=== PATIENT | female | born 1990 | race African-American/Black ===

== ENCOUNTER 2018-01-31 10:23 | Emergency (ER) | payer OTHER ==
[2018-01-31] MEDS ORDERED: MAG HYDROX/AL HYDROX/SIMETH 30 ML UDC PO STA (11:42)
[2018-01-31] MEDS ORDERED: LIDOCAINE VISCOUS 2% 15 ML UDC MM STA (11:42)
[2018-01-31] MEDS ORDERED: PHENobarb/HYOSCY/ATROPINE/SCOP 5 ML UDC PO STA (11:43)
--- NOTE | 2018-01-31 11:44 | ED Physician Documentation ---
PD HPI CHEST PAIN - Stated complaint Stated Complaint: CHEST PX/DIZZY - Chief complaint Chief Complaint: Cardiac - History obtained from History obtained from: Patient - History of Present Illness Timing - onset: How many days ago (5) Timing - onset during: Rest Timing - details: Still present Location: Substernal Worsened by: Position (supine) Similar symptoms before: Has not had sx before - Additional information Additional information: The patient is a 27-year-old female who presents with substernal chest discomfort that occurs mostly at night, and has occurred for the past 5 nights. She notices her heart beating heavily, and experiences nausea. She denies vomiting, dyspnea, or diaphoresis. She denies history of similar symptoms in the past. Review of Systems Constitutional: denies: Fever, Fatigue Nose: denies: Congestion Throat: denies: Sore throat Cardiac: reports: Chest pain / pressure, Palpitations Respiratory: denies: Dyspnea, Cough GI: reports: Nausea. denies: Abdominal Pain, Vomiting : denies: Dysuria Skin: denies: Rash Musculoskeletal: denies: Extremity pain, Extremity swelling Neurologic: denies: Focal weakness, Numbness, Headache PD PAST MEDICAL HISTORY - Past Medical History Past Medical History: No Cardiovascular: None Respiratory: None Neuro: None Endocrine/Autoimmune: None GI: None DOGGER: None : None HEENT: None Psych: None Musculoskeletal: None Derm: None - Past Surgical History Past Surgical History: No - Present Medications Home Medications: Ambulatory Orders Medication Instructions Recorded Confirmed raNITIdine [Zantac] 150 mg PO BID #30 tablet 01/31/18 - Allergies Allergies/Adverse Reactions: Allergies Allergy/AdvReac Type Severity Reaction Status Date / Time No Known Drug Allergies Allergy Verified 01/31/18 10:38 - Social History Does the pt smoke?: No Smoking Status: Never smoker Does the pt drink ETOH?: No Does the pt have substance abuse?: No - Immunizations Immunizations are current?: Yes - POLST Patient has POLST: No PD ED PE NORMAL - Vitals Vital signs reviewed: Yes (Borderline hypertension.) - General General: Alert and oriented X 3, Well developed/nourished - HEENT HEENT: Atraumatic, Pharynx benign - Neck Neck: No adenopathy, No JVD - Cardiac Cardiac: RRR, No murmur - Respiratory Respiratory: No respiratory distress, Clear bilaterally, Other (No chest wall tenderness to palpation.) - Abdomen Abdomen: Soft, Non tender - Back Back: No CVA TTP - Derm Derm: No rash - Extremities Extremities: No edema, No calf tenderness / cord - Neuro Neuro: Alert and oriented X 3, No motor deficit, Normal speech Results - Vitals Vitals: Vital Signs - 24 hr 01/31/18 01/31/18 10:26 11:02 Temperature 36.3 C L Heart Rate 65 66 Respiratory 18 16 Rate Blood Pressure 133/88 H 123/83 H O2 Saturation 100 100 Oxygen O2 Source Room air - EKG (time done) 10:32 Rate: Rate (enter#) (75) Rhythm: NSR [place]: Normal Intervals: Normal CA QRS: Normal Ischemia: Non specific changes (T-wave flattening in inferior leads III and aVF.) Computer interpretation: Agree with computer - Rads (name of study) CXR Radiology: Prelim report reviewed, EMP read contemporaneously, See rad report (Normal 2 view chest x-ray.) PD MEDICAL DECISION MAKING - ED course Complexity details: reviewed results, re-evaluated patient, considered differential, d/w patient, d/w family ED course: The patient's presentation is significant for atypical chest pain, that is most likely due to gastroesophageal reflux. I doubt cardiac etiology. Her EKG is normal. There is no evidence of pulmonary etiology, and her chest x-ray reveals no radiographic abnormalities. Treatment in the emergency department included GI cocktail which provided slight improvement, but not complete resolution of symptoms. She is being discharged with prescription for ranitidine. I discussed with her and her family the diagnosis, outpatient treatment and follow-up, as well as potentially worrisome signs or symptoms that should prompt reevaluation in the emergency department. - Sepsis Event Vital Signs: Vital Signs - 24 hr 01/31/18 01/31/18 10:26 11:02 Temperature 36.3 C L Heart Rate 65 66 Respiratory 18 16 Rate Blood Pressure 133/88 H 123/83 H O2 Saturation 100 100 Oxygen O2 Source Room air Departure - Departure Disposition: 01 Home, Self Care Clinical Impression: Chest pain Qualifiers: Chest pain type: unspecified Qualified Code(s): R07.9 - Chest pain, unspecified Gastroesophageal reflux disease Qualifiers: Esophagitis presence: esophagitis presence not specified Qualified Code(s): K21.9 - Gastro-esophageal reflux disease without esophagitis Condition: Stable Instructions: ED GERD Follow-Up: [facility] [place] [Provider Group] Prescriptions: raNITIdine [Zantac] 150 mg PO BID #30 tablet Comments: Take ranitidine twice daily as prescribed. You can use liquid antacid, such as Maalox or Mylanta, if you develop recurrent symptoms. Follow-up with your primary physician within 2 weeks. Call to schedule appointment. Return to emerge department if you develop increasing chest pain, shortness of breath, abdominal pain or vomiting, or otherwise worsening symptoms. Discharge Date/Time: 01/31/18 13:40
[2018-01-31 13:07] VITALS: BP 128/85
--- NOTE | 2018-01-31 13:26 | XRAY Report ---
Reason: chest pain Procedure Date: 01/31/2018 Accession Number: [id number] / [id number] Procedure: XR - Chest 2 View X-Ray CPT Code: 03481 FULL RESULT: EXAM: CHEST RADIOGRAPHY EXAM DATE: 01/31/2018 01:07 PM. CLINICAL HISTORY: Chest pain. COMPARISON: None. TECHNIQUE: 2 views. FINDINGS: Lungs/Pleura: No focal opacities evident. No pleural effusion. No pneumothorax. Normal volumes. Mediastinum: Heart and mediastinal contours are unremarkable. Other: There appear to be small bilateral cervical ribs. IMPRESSION: No radiographically apparent acute abnormality in the chest. Clear lungs. [facility]
== END 2018-01-31 13:40 | disposition home or self-care (01) ==
LOC: ED 10:23
DX: R07.9 Chest pain, unspecified (principal); K21.9 Gastro-esophageal reflux disease without esophagitis
CPT/HCPCS: 71046; 93005; 99283; A9270